=== PATIENT | female | born 1970 | race Caucasian/White ===

== ENCOUNTER 2024-12-18 19:32 | Emergency (ER) | payer MEDICAID ==
[~2024-12-18] VITALS: Ht 152.4 cm; Wt 82.6 kg
[2024-12-18 20:17] VITALS: TEMP 98
[2024-12-18] MEDS ORDERED: AMOX-430 PO (20:18)
[2024-12-18 21:16] VITALS: BP 120/75; O2SAT 98
== END 2024-12-18 20:52 | disposition home or self-care (01) ==
LOC: ER 19:37
DX: I80.9 Phlebitis and thrombophlebitis of unspecified site (principal)